=== PATIENT | female | born 1935 | race Caucasian/White ===

== ENCOUNTER 2023-03-25 18:26 | Emergency (ER) | payer OTHER, BC ==
[2023-03-25 19:01] VITALS: RESP 18; BMI 24.5
[2023-03-25] MEDS ORDERED: SODIUM CHLORIDE IV ONE (20:46)
[2023-03-25] MEDS ORDERED: ACETAMINOPHEN 1000 MG/100 ML BAG IVPB ONE (20:46)
[2023-03-25] MEDS ORDERED: IBUPROFEN 600 MG TABLET (FP) PO ONE (20:55)
[2023-03-25] MEDS ORDERED: ACETAMINOPHEN INJECTION 100 ML IVPB ONE (21:52)
[2023-03-25 22:34] LABS: VENOUS BASE EXCESS 0.8 mmol/L (-2-2); VENOUS O2 SATURATION 43.3 % (70-80); VENOUS PCO2 43.8 mmHg (38-52); VENOUS PH 7.392 (7.310-7.410)
[2023-03-25 22:36] LABS: BASO % 0.5 % (0-2.0); EOS % 2.5 % (0-4.5); HEMATOCRIT 34.2 % (32.4-45.2); HEMOGLOBIN 10.9 GM/dL (10.7-15.3); LYMPH % 17.7 % (8-40); MCH 25.5 pg (25.7-33.7); MCHC 31.9 g/dl (32.0-36.0); MEAN CELL VOLUME 80.1 fl (80-96); MONO % 7.3 % (3.8-10.2); PLATELET COUNT 248 10^3/uL (134-434); RBC 4.27 M/mm3 (3.60-5.2); WHITE BLOOD COUNT 10.3 K/mm3 (4.0-10.0)
[2023-03-25 22:42] LABS: INR 1.34 (0.83-1.09); PROTHROMBIN TIME (PATIENT) 15.5 SEC (9.7-13.0)
[2023-03-25 22:45] LABS: ACTIVATED PTT 38.7 SECONDS (25.2-36.5)
[2023-03-25 22:53] LABS: POTASSIUM 4.3 mmol/L (3.5-5.1)
[2023-03-25 22:55] LABS: CALCIUM 8.6 mg/dL (8.5-10.1)
[2023-03-25 22:56] LABS: ALBUMIN 2.8 g/dl (3.4-5.0); BLOOD UREA NITROGEN 38.8 mg/dL (7-18); MAGNESIUM 2.5 mg/dL (1.8-2.4)
[2023-03-25 22:59] LABS: CREATININE 1.8 mg/dL (0.55-1.3)
[2023-03-25 23:01] LABS: BILIRUBIN,TOTAL 0.3 mg/dL (0.2-1); TOT PROT 6.9 g/dl (6.4-8.2)
[2023-03-25 23:28] LABS: EPI CELLS >36 /uL (0-25.1); HYALINE CASTS 0 /uL (0-3.1); URINE APPEARANCE CLEAR; URINE BACTERIA 48 /uL (0-1359); URINE BILIRUBIN NEGATIVE (NEGATIVE); URINE COLOR YELLOW; URINE GLUCOSE (UA) NEGATIVE (NEGATIVE); URINE KETONE NEGATIVE (NEGATIVE); URINE LEUK ESTERASE NEGATIVE (NEGATIVE); URINE NITRITE NEGATIVE (NEGATIVE); URINE PROTEIN 3+ (NEGATIVE); URINE RBC 37 /uL (0-23.9); URINE WBC 11 /uL (0-25.8)
[2023-03-25 23:44] VITALS: TEMP 98.6
[2023-03-25] MEDS ORDERED: morphine CARPU-JECT 2 MG/1 ML DISP.SYRIN IVPUSH ONE (23:51)
[2023-03-25] MEDS ORDERED: ONDANSETRON 4 MG/2 ML VIAL IVPUSH ONE (23:51)
[2023-03-25] MEDS ORDERED: ONDANSETRON 4 MG/2 ML VIAL ONE (23:57)
[2023-03-26] MEDS ORDERED: morphine CARPU-JECT 2 MG/1 ML DISP.SYRIN IM ONE (00:42)
[2023-03-26 00:45] LABS: CALCIUM 8.4 mg/dL (8.5-10.1)
[2023-03-26 00:46] LABS: BLOOD UREA NITROGEN 38.6 mg/dL (7-18)
[2023-03-26 00:49] LABS: CREATININE 1.8 mg/dL (0.55-1.3)
[2023-03-26 01:59] VITALS: BP 109/69; PULSE 62
== END 2023-03-26 01:58 | disposition short-term general hospital (02) ==
LOC: JER 18:26
PROC: 3E033NZ Introduction of Analgesics, Hypnotics, Sedatives into Peripheral Vein, Percutaneous Approach (ICD-10-PCS; principal; 2023-03-25)
PROC: 3E033GC Introduction of Other Therapeutic Substance into Peripheral Vein, Percutaneous Approach (ICD-10-PCS; 2023-03-25)
PROC: 3E033GC Introduction of Other Therapeutic Substance into Peripheral Vein, Percutaneous Approach (ICD-10-PCS; 2023-03-25)
PROC: 3E0337Z Introduction of Electrolytic and Water Balance Substance into Peripheral Vein, Percutaneous Approach (ICD-10-PCS; 2023-03-25)
PROC: 3E0337Z Introduction of Electrolytic and Water Balance Substance into Peripheral Vein, Percutaneous Approach (ICD-10-PCS; 2023-03-25)
PROC: 3E033NZ Introduction of Analgesics, Hypnotics, Sedatives into Peripheral Vein, Percutaneous Approach (ICD-10-PCS; 2023-03-26)
DX: S72.332A Displaced oblique fracture of shaft of left femur, initial encounter for closed fracture (principal); W19.XXXA Unspecified fall, initial encounter; Y92.9 Unspecified place or not applicable
CPT/HCPCS: 0241U-QW; 36415; 70450-TC; 71045-TC-FY; 72125-TC; 72170-TC-FY; 73552-TC-LT-FY; 73562-TC-LT-FY; 73700-TC-RT; 80048; 80053; 81003; 82550; 82553; 82803; 83605; 83735; 84484; 85025; 85610; 85730; 86850; 86900; 86901; 87040; 87086; 93005; 93010; 96361; 96374; 96375; 96376; 99285-25